=== PATIENT | female | born 1980 | race Caucasian/White ===

== ENCOUNTER 2017-08-06 09:53 | Emergency (ER) | payer BC ==
[2017-08-06] MEDS: Adenosine 6 MG/2 ML SDV ONE ×2 (10:04→10:32)
[2017-08-06] MEDS ORDERED: Adenosine 6 MG/2 ML SDV IVPUSH ONE (10:04)
[2017-08-06] MEDS ORDERED: Sodium Chloride 0.9% 1,000 ML IV ONE (10:16)
--- NOTE | 2017-08-06 10:34 | EDM.PDOC ---
ED HPI GENERAL MEDICAL PROBLEM - General Chief Complaint: Cardiovascular Problem Stated Complaint: AMBULANCE Time Seen by Provider: 08/06/17 12:37 Source of Information: Reports: Patient, EMS - History of Present Illness INITIAL COMMENTS - FREE TEXT/NARRATIVE: HISTORY AND PHYSICAL: History of present illness: [36-year-old female 22 weeks with IUP followed by Dr. melendez, she presents via EMS with SVT alert no shortness of breath no chest pain Lactated Ringer's were running via EMS she received approximately half liter bolus] heart rate remains 200-220, adenosine 6 mg IV provided which converted her to a sinus rhythm rate 80s to 90s. No fever nausea vomiting chills sweats Review of systems: As per history of present illness and below otherwise all systems reviewed and negative. Past medical history: As per history of present illness and as reviewed below otherwise noncontributory. Surgical history: As per history of present illness and as reviewed below otherwise noncontributory. Social history: No reported history of drug or alcohol abuse. Family history: As per history of present illness and as reviewed below otherwise noncontributory. Physical exam: HEENT: Atraumatic, normocephalic, pupils reactive, negative for conjunctival pallor or scleral icterus, mucous membranes moist, throat clear, neck supple, nontender, trachea midline. Lungs: Clear to auscultation, breath sounds equal bilaterally, chest nontender. Heart: S1S2, regular, negative for clicks, rubs, or JVD. Abdomen: Soft, nondistended, nontender. Negative for masses or hepatosplenomegaly. Negative for costovertebral tenderness. Pelvis: Stable nontender. Genitourinary: Deferred. Rectal: Deferred. Extremities: Atraumatic, negative for cords or calf pain. Neurovascular unremarkable. Neuro: Awake, alert, oriented. Cranial nerves II through XII unremarkable. Cerebellum unremarkable. Motor and sensory unremarkable throughout. Exam nonfocal. Diagnostics: []Lab as below EKG heart tones Therapeutics: [Normal saline 1 L bolus Lactated Ringer's half liter bolused provided via EMS Adenosine 6 mg IV In consult [facility] clinic Dr. Baca no further recommendation she did have matted TSH and follow which is normal she would like to patients seen in the clinic a [place] next week and they'll consider cardiology referral with Dr. Mcneal Patient is watched in the ER for extended. She is eating lunch is been up and out of bed walking around and is compressed completely asymptomatic ] Impression: []SVT converted to normal sinus rhythm rate in the 80s to 90s Asymptomatic at current normal sinus rhythm rate 80s to 90s heart tones 140s line 22 weeks with IUP followed by Dr. melendez Definitive disposition and diagnosis as appropriate pending reevaluation and review of above. - Related Data Allergies Allergy/AdvReac Type Severity Reaction Status Date / Time No Known Allergies Allergy Verified 08/06/17 10:10 Home Meds: Home Meds Aspirin 81 mg PO ONETIME 08/06/17 [History] Past Medical History - Past Health History Medical/Surgical History: Denies Medical/Surgical History Social & Family History - Family History Family Medical History: Noncontributory - Tobacco Use Smoking Status *Q: Never Smoker - Recreational Drug Use Recreational Drug Use: No ED ROS GENERAL - Review of Systems Review Of Systems: ROS reveals no pertinent complaints other than HPI. ED EXAM, GENERAL - Physical Exam Exam: See Below Course - Vital Signs Last Recorded V/S: Last Vital Signs Temp 98.0 F 08/06/17 09:55 Pulse 103 H 08/06/17 10:46 Resp 18 08/06/17 10:46 BP 111/71 08/06/17 10:46 Pulse Ox 100 08/06/17 10:46 - Orders/Labs/Meds Orders: Active Orders 24 hr Category Date Time Status EKG Documentation Completion [RC] STAT Care 08/06/17 10:17 Active EKG Documentation Completion [RC] STAT Care 08/06/17 10:17 Active Heart Tones [RC] ASDIRECTED Care 08/06/17 10:16 Active Labs: Laboratory Tests 08/06/17 08/06/17 08/06/17 Range/Units 10:03 10:03 10:03 WBC 7.87 (4.0-11.0) K/uL RBC 4.45 (4.30-5.90) M/uL Hgb 14.1 (12.0-16.0) g/dL Hct 41.0 (36.0-46.0) % MCV 92.1 (80.0-98.0) fL MCH 31.7 (27.0-32.0) pg MCHC 34.4 (31.0-37.0) g/dL RDW Std Deviation 44.0 (28.0-62.0) fl RDW Coeff of Clau 13 (11.0-15.0) % Plt Count 206 (150-400) K/uL MPV 10.70 (7.40-12.00) fL Neut % (Auto) 74.1 (48.0-80.0) % Lymph % (Auto) 20.5 (16.0-40.0) % Wake % (Auto) 5.2 (0.0-15.0) % Eos % (Auto) 0.1 (0.0-7.0) % Baso % (Auto) 0.1 (0.0-1.5) % Neut # (Auto) 5.8 H (1.4-5.7) K/uL Lymph # (Auto) 1.6 (0.6-2.4) K/uL Wake # (Auto) 0.4 (0.0-0.8) K/uL Eos # (Auto) 0.0 (0.0-0.7) K/uL Baso # (Auto) 0.0 (0.0-0.1) K/uL Nucleated RBC % 0.0 /100WBC Nucleated RBCs # 0 K/uL Sodium 136 (136-146) mmol/L Potassium 3.8 (3.5-5.1) mmol/L Chloride 104 (98-110) mmol/L Carbon Dioxide 19 L (21-31) mmol/L BUN 10 (6.0-23.0) mg/dL Creatinine 0.6 (0.6-1.5) mg/dL Est Cr Clr Drug Dosing 121.35 mL/min Estimated GFR (MDRD) > 60.0 ml/min Glucose 109 (60-110) mg/dL Calcium 9.4 (8.8-10.8) mg/dL Total Bilirubin 1.6 H (0.1-1.5) mg/dL AST 26 (5-40) IU/L ALT 16 (8-54) IU/L Alkaline Phosphatase 84 (40-150) Creatine Kinase 33 (9-236) IU/L CK-MB (CK-2) 0.6 (0-6.6) ng/ml Troponin I < 0.10 (0.0-0.29) NG/ML Total Protein 7.6 (6.0-8.0) g/dL Albumin 3.9 (3.5-5.0) g/dL Globulin 3.7 H (2.0-3.5) g/dL Albumin/Globulin Ratio 1.1 L (1.3-2.8) TSH 3rd Generation 2.57 (0.47-5.0) uIU/mL Urine Color Urine Appearance Urine pH (5.0-8.0) Ur Specific [place] (1.001-1.035) Urine Protein (NEGATIVE) mg/dL Urine Glucose (UA) (NEGATIVE) mg/dL Urine Ketones (NEGATIVE) mg/dL Urine Occult Blood (NEGATIVE) Urine Nitrite (NEGATIVE) Urine Bilirubin (NEGATIVE) Urine Urobilinogen (<2.0) EU/dL Ur Leukocyte Esterase (NEGATIVE) Urine RBC (0-2/HPF) Urine WBC (0-5/HPF) Ur Epithelial Cells (NONE-FEW) Urine Bacteria (NEGATIVE) 08/06/17 Range/Units 11:50 WBC (4.0-11.0) K/uL RBC (4.30-5.90) M/uL Hgb (12.0-16.0) g/dL Hct (36.0-46.0) % MCV (80.0-98.0) fL MCH (27.0-32.0) pg MCHC (31.0-37.0) g/dL RDW Std Deviation (28.0-62.0) fl RDW Coeff of Clau (11.0-15.0) % Plt Count (150-400) K/uL MPV (7.40-12.00) fL Neut % (Auto) (48.0-80.0) % Lymph % (Auto) (16.0-40.0) % Wake % (Auto) (0.0-15.0) % Eos % (Auto) (0.0-7.0) % Baso % (Auto) (0.0-1.5) % Neut # (Auto) (1.4-5.7) K/uL Lymph # (Auto) (0.6-2.4) K/uL Wake # (Auto) (0.0-0.8) K/uL Eos # (Auto) (0.0-0.7) K/uL Baso # (Auto) (0.0-0.1) K/uL Nucleated RBC % /100WBC Nucleated RBCs # K/uL Sodium (136-146) mmol/L Potassium (3.5-5.1) mmol/L Chloride (98-110) mmol/L Carbon Dioxide (21-31) mmol/L BUN (6.0-23.0) mg/dL Creatinine (0.6-1.5) mg/dL Est Cr Clr Drug Dosing mL/min Estimated GFR (MDRD) ml/min Glucose (60-110) mg/dL Calcium (8.8-10.8) mg/dL Total Bilirubin (0.1-1.5) mg/dL AST (5-40) IU/L ALT (8-54) IU/L Alkaline Phosphatase (40-150) Creatine Kinase (9-236) IU/L CK-MB (CK-2) (0-6.6) ng/ml Troponin I (0.0-0.29) NG/ML Total Protein (6.0-8.0) g/dL Albumin (3.5-5.0) g/dL Globulin (2.0-3.5) g/dL Albumin/Globulin Ratio (1.3-2.8) TSH 3rd Generation (0.47-5.0) uIU/mL Urine Color YELLOW Urine Appearance CLEAR Urine pH 6.5 (5.0-8.0) Ur Specific [place] 1.010 (1.001-1.035) Urine Protein NEGATIVE (NEGATIVE) mg/dL Urine Glucose (UA) NEGATIVE (NEGATIVE) mg/dL Urine Ketones 40 H (NEGATIVE) mg/dL Urine Occult Blood NEGATIVE (NEGATIVE) Urine Nitrite NEGATIVE (NEGATIVE) Urine Bilirubin NEGATIVE (NEGATIVE) Urine Urobilinogen 0.2 (<2.0) EU/dL Ur Leukocyte Esterase NEGATIVE (NEGATIVE) Urine RBC NONE SEEN (0-2/HPF) Urine WBC 1-2 (0-5/HPF) Ur Epithelial Cells RARE (NONE-FEW) Urine Bacteria FEW (NEGATIVE) Meds: Medications Discontinued Medications Generic Name Dose Route Start Last Admin Trade Name Freq PRN Reason Stop Dose Admin Adenosine Confirm 08/06/17 09:57 08/06/17 10:32 Adenocard Administered 08/06/17 09:58 Not Given Dose 6 mg .ROUTE .STK-MED ONE Adenosine 6 mg 08/06/17 10:04 08/06/17 10:04 Adenocard IVPUSH 08/06/17 10:05 6 mg NOW ONE Administration Sodium Chloride 1,000 mls @ 999 mls/hr 08/06/17 10:16 08/06/17 10:03 Normal Saline IV 08/06/17 11:16 999 mls/hr STAT ONE Administration Departure - Departure Time of Disposition: 12:39 Disposition: Home, Self-Care 01 Condition: Good Clinical Impression: SVT (supraventricular tachycardia) Referrals: PCP,None [Primary Care Provider] - Forms: ED Department Discharge Additional Instructions: Follow-up with [facility] early next week Your OB doctor may consider cardiology consult and they will arrange this next week Return if symptoms persist or worsen or new concerning symptoms develop [facility] [address] [place] [id number] The following information is given to patients seen in the emergency department who are being discharged to home. This information is to outline your options for follow-up care. We provide all patients seen in our emergency department with a follow-up referral. The need for follow-up, as well as the timing and circumstances, are variable depending upon the specifics of your emergency department visit. If you don't have a primary care physician on staff, we will provide you with a referral. We always advise you to contact your personal physician following an emergency department visit to inform them of the circumstance of the visit and for follow-up with them and/or the need for any referrals to a consulting specialist. The emergency department will also refer you to a specialist when appropriate. This referral assures that you have the opportunity for follow-up care with a specialist. All of these measure are taken in an effort to provide you with optimal care, which includes your follow-up. Under all circumstances we always encourage you to contact your private physician who remains a resource for coordinating your care. When calling for follow-up care, please make the office aware that this follow-up is from your recent emergency room visit. If for any reason you are refused follow-up, please contact the [facility] emergency department at and asked to speak to the emergency department charge nurse. - My Orders Last 24 Hours: My Active Orders 08/06/17 10:16 Heart Tones [RC] ASDIRECTED 08/06/17 10:17 EKG Documentation Completion [RC] STAT EKG Documentation Completion [RC] STAT - Assessment/Plan Last 24 Hours: My Active Orders 08/06/17 10:16 Heart Tones [RC] ASDIRECTED 08/06/17 10:17 EKG Documentation Completion [RC] STAT EKG Documentation Completion [RC] STAT
[2017-08-06 10:35] LABS: CHLORIDE,CL 104 mmol/L (98-110); SODIUM,NA 136 mmol/L (136-146)
== END 2017-08-06 13:36 | disposition home or self-care (01) ==
LOC: MW.ED 09:53
DX: O99.412 Diseases of the circulatory system complicating pregnancy, second trimester (principal); I47.1 Supraventricular tachycardia; Z3A.22 22 weeks gestation of pregnancy
CPT/HCPCS: 36415; 80053; 81001; 82550; 82553; 84443; 84484; 85025; 93005; 96361; 96374; 99285; J0153; J7040

== ENCOUNTER 2017-11-28 09:45 | Inpatient (IN) | payer BC ==
[2017-11-28] MEDS ORDERED: Terbutaline 1 MG/ML SDV SUBCUT PRN (10:14)
[2017-11-28] MEDS ORDERED: Oxytocin/0.9 % Sodium Chloride 30 UNIT/500 ML BAG IV SCH ×2 (10:15→10:30)
[2017-11-28] MEDS ORDERED: Lidocaine 1% 50 ML MDV INJECT PRN (10:18)
[2017-11-28] MEDS ORDERED: Butorphanol 1 MG/ML SDV IVPUSH PRN (10:18)
[2017-11-28] MEDS ORDERED: Methylergonovine 0.2 MG/1 ML Amp IM PRN (10:18)
[2017-11-28] MEDS ORDERED: Nalbuphine 10 MG/1 ML Vial IVPUSH PRN (10:18)
[2017-11-28] MEDS ORDERED: Misoprostol 200 MCG Tab PO PRN (10:18)
[2017-11-28] MEDS ORDERED: Carboprost Tromethamine 250 MCG/1 ML Amp IM PRN (10:18)
[2017-11-28] MEDS ORDERED: Sodium Chloride 0.9% 2.5 ML Syringe FLUSH PRN (10:18)
[2017-11-28] MEDS ORDERED: Water For Irrigation,Sterile 1,000 ML Container IRR PRN (10:18)
[2017-11-28] MEDS ORDERED: Tranexamic Acid 1,000 MG in Sodium Chloride 0.9% 100 ML IV PRN ×2 (10:18→15:10)
[2017-11-28] MEDS ORDERED: Sodium Chloride 0.9% 10 ML Syringe FLUSH PRN (10:18)
[2017-11-28] MEDS: Lactated Ringers 1,000 ML IV SCH ×2 (11:03→13:01)
--- NOTE | 2017-11-28 12:35 | PCM.PREANE ---
Preanesthetic Assessment - Anesthesia/Transfusion/Family Hx Anesthesia History: Prior Anesthesia Without Reaction Transfusion History: No Prior Transfusion(s) - Review of Systems General: No Symptoms Pulmonary: No Symptoms Cardiovascular: No Symptoms Gastrointestinal: No Symptoms Neurological: No Symptoms Other: Reports: None - Physical Assessment Height: 5 ft 6 in Weight: 77.564 kg ASA Class: 2 Mental Status: Alert & Oriented x3 Airway Class: Mallampati = 2 Dentition: Reports: Normal Dentition Thyro-Mental Finger Breadths: 3 Mouth Opening Finger Breadths: 3 ROM/Head Extension: Full Lungs: Clear to Auscultation, Normal Respiratory Effort Cardiovascular: Regular Rate, Regular Rhythm - Lab Values: Laboratory Last Values WBC 9.79 K/uL (4.0-11.0) 11/28/17 10:40 RBC 3.74 M/uL (4.30-5.90) L 11/28/17 10:40 Hgb 11.7 g/dL (12.0-16.0) L 11/28/17 10:40 Hct 34.0 % (36.0-46.0) L 11/28/17 10:40 MCV 90.9 fL (80.0-98.0) 11/28/17 10:40 MCH 31.3 pg (27.0-32.0) 11/28/17 10:40 MCHC 34.4 g/dL (31.0-37.0) 11/28/17 10:40 RDW Std Deviation 43.8 fl (28.0-62.0) 11/28/17 10:40 RDW Coeff of Clau 13 % (11.0-15.0) 11/28/17 10:40 Plt Count 198 K/uL (150-400) 11/28/17 10:40 MPV 10.10 fL (7.40-12.00) 11/28/17 10:40 Nucleated RBC % 0.0 /100WBC 11/28/17 10:40 Nucleated RBCs # 0 K/uL 11/28/17 10:40 Blood Type O POSITIVE 11/28/17 10:40 Antibody Screen NEGATIVE 11/28/17 10:40 - Allergies Allergies/Adverse Reactions: Allergies Allergy/AdvReac Type Severity Reaction Status Date / Time No Known Allergies Allergy Verified 08/06/17 10:10 - Acknowledgements Anesthesia Type Planned: Epidural Pt an Appropriate Candidate for the Planned Anesthesia: Yes Alternatives and Risks of Anesthesia Discussed w Pt/Guardian: Yes Pt/Guardian Understands and Agrees with Anesthesia Plan: Yes PreAnesthesia Questionnaire - Past Health History Medical/Surgical History: Denies Medical/Surgical History HEENT History: Reports: None Cardiovascular History: Reports: Other (See Below) Other Cardiovascular History: Some episodes of tachycardia 4x a year (SVT). Last episode , has responded to adenosine in the past 6mg Respiratory History: Reports: None Gastrointestinal History: Reports: GERD Genitourinary History: Reports: None ASSOCIATE MANAGER History: Reports: : 2 Para: 1 LMP (Approximate): Musculoskeletal History: Reports: None Neurological History: Reports: None Psychiatric History: Reports: None Endocrine/Metabolic History: Reports: None Hematologic History: Reports: None Immunologic History: Reports: None Oncologic (Cancer) History: Reports: None Dermatologic History: Reports: None - Infectious Disease History Infectious Disease History: Reports: None - Past Surgical History Head Surgeries/Procedures: Reports: None Female Surgical History: Reports: None - SUBSTANCE USE Smoking Status *Q: Never Smoker Second Hand Smoke Exposure: No Recreational Drug Use History: No - HOME MEDS Home Medications: Home Meds Aspirin 81 mg PO ONETIME 08/06/17 [History] - CURRENT (IN HOUSE) MEDS Current Meds: Current Medications Butorphanol Tartrate (Stadol) 1 mg IVPUSH Q1H PRN PRN Reason: Pain Carboprost Tromethamine (Hemabate Ds) 250 mcg IM ASDIRECTED PRN PRN Reason: Post Hemorrhage Oxytocin/Sodium Chloride (Oxytocin 30 Unit/500 Ml-Ns) 30 unit in 500 mls @ 2 mls/hr IV TITRATE NANCY; Protocol Last Titration: 11/28/17 12:09 Dose: 6 munits/min, 6 mls/hr Lactated Ringer's (Ringers, Lactated) 1,000 mls @ 150 mls/hr IV ASDIRECTED NANCY Last Admin: 11/28/17 11:03 Dose: 150 mls/hr Oxytocin/Sodium Chloride (Oxytocin 30 Unit/500 Ml-Ns) 30 unit in 500 mls @ 500 mls/hr IV TITRATE NANCY Tranexamic Acid 1,000 mg/ (Sodium Chloride) 110 mls @ 660 mls/hr IV ONETIME PRN PRN Reason: Bleeding Lidocaine HCl (Xylocaine 1%) 50 ml INJECT .ONCE PRN PRN Reason: Laceration repair Methylergonovine Maleate (Methergine) 0.2 mg IM ASDIRECTED PRN PRN Reason: Post Hemorrhage Misoprostol (Cytotec) 200 mcg PO .ONCE PRN PRN Reason: Post Hemorrhage Nalbuphine HCl (Nubain) 10 mg IVPUSH Q1H PRN PRN Reason: Pain (severe 7-10) Sodium Chloride (Saline Flush) 10 ml FLUSH ASDIRECTED PRN PRN Reason: Keep Vein Open Sodium Chloride (Saline Flush) 2.5 ml FLUSH ASDIRECTED PRN PRN Reason: Keep Vein Open Sterile Water (Sterile Water For Irrigation) 1,000 ml IRR ASDIRECTED PRN PRN Reason: delivery Terbutaline Sulfate (Brethine) 0.25 mg SUBCUT ASDIRECTED PRN PRN Reason: Tacysystole
[2017-11-28] MEDS ORDERED: Bisacodyl 10 MG Supp RECTAL PRN (15:10)
[2017-11-28] MEDS ORDERED: Ibuprofen 400 MG Tab PO PRN (15:10)
[2017-11-28] MEDS ORDERED: Methylergonovine 0.2 MG Tab PO PRN (15:10)
[2017-11-28] MEDS ORDERED: Lanolin 100% Cream 7 GM Tube TOP PRN (15:10)
[2017-11-28] MEDS ORDERED: oxyCODONE 5 MG Tab PO PRN (15:10)
[2017-11-28] MEDS ORDERED: Docusate Sodium 100 MG Cap PO PRN (15:10)
[2017-11-28] MEDS ORDERED: Acetaminophen 500 MG Tab PO PRN ×2 (15:10)
[2017-11-28] MEDS ORDERED: Benzocaine/Menthol 20%-0.5% Spray 78 GM Cannister TOP PRN (15:10)
[2017-11-28] MEDS ORDERED: Witch Hazel Medicated Pads 40/Jar TOP PRN (15:10)
--- NOTE | 2017-11-28 15:18 | PCM.DEL ---
L & D Note - General Info Date of Service: 11/28/17 Mother's Due Date: 12/03/17 - Delivery Note Labor: Induced by Oxytocin Delivery Outcome: Livebirth Infant Delivery Mode: Spontaneous Presentation: Left Occiput Anterior (JAVIER) Nuchal Cord: None Prep: Other Anesthesia Type: None, Epidural Episiotomy Type: None Laceration: 2nd Degree, Periurethral Suture type: Vicryl Suture size: 3-0 Placenta: Intact, Spontaneous Cord: 2 Vessels Resuscitation Needed: No [place]: Stimulated - Patient Data Weight - Most Recent: 77.564 kg Lab Results Last 24 Hours: Laboratory Results - last 24 hr 11/28/17 11/28/17 Range/Units 10:40 10:40 WBC 9.79 (4.0-11.0) K/uL RBC 3.74 L (4.30-5.90) M/uL Hgb 11.7 L (12.0-16.0) g/dL Hct 34.0 L (36.0-46.0) % MCV 90.9 (80.0-98.0) fL MCH 31.3 (27.0-32.0) pg MCHC 34.4 (31.0-37.0) g/dL RDW Std Deviation 43.8 (28.0-62.0) fl RDW Coeff of Clau 13 (11.0-15.0) % Plt Count 198 (150-400) K/uL MPV 10.10 (7.40-12.00) fL Nucleated RBC % 0.0 /100WBC Nucleated RBCs # 0 K/uL Blood Type O POSITIVE Antibody Screen NEGATIVE Med Orders - Current: Current Medications Acetaminophen (Tylenol Extra Strength) 500 mg PO Q4H PRN PRN Reason: Pain Acetaminophen (Tylenol Extra Strength) 1,000 mg PO Q4H PRN PRN Reason: Pain Benzocaine/Menthol (Dermoplast Pain Relief 20%-0.5% [place]) 78 gm TOP ASDIRECTED PRN PRN Reason: Perineal Comfort Measure Bisacodyl (Dulcolax) 10 mg RECTAL .ONCE PRN PRN Reason: Constipation Docusate Sodium (Colace) 100 mg PO BID PRN PRN Reason: Constipation Emollient Ointment (Lansinoh Hpa) 0 gm TOP ASDIRECTED PRN PRN Reason: Sore Nipples Tranexamic Acid 1,000 mg/ (Sodium Chloride) 110 mls @ 660 mls/hr IV ONETIME PRN PRN Reason: Bleeding Ibuprofen (Motrin) 400 mg PO Q4H PRN PRN Reason: Pain Ibuprofen (Motrin) 800 mg PO Q6H PRN PRN Reason: Pain Methylergonovine Maleate (Methergine) 0.2 mg PO ASDIRECTED PRN PRN Reason: excessive vaginal bleeding Oxycodone HCl (Oxycodone) 5 mg PO Q2H PRN PRN Reason: Pain Witch Tosin (Tucks) 1 pad TOP ASDIRECTED PRN PRN Reason: comfort care Discontinued Medications Butorphanol Tartrate (Stadol) 1 mg IVPUSH Q1H PRN PRN Reason: Pain Carboprost Tromethamine (Hemabate Ds) 250 mcg IM ASDIRECTED PRN PRN Reason: Post Hemorrhage Oxytocin/Sodium Chloride (Oxytocin 30 Unit/500 Ml-Ns) 30 unit in 500 mls @ 2 mls/hr IV TITRATE NANCY; Protocol Last Titration: 11/28/17 13:29 Dose: 2 munits/min, 2 mls/hr Lactated Ringer's (Ringers, Lactated) 1,000 mls @ 150 mls/hr IV ASDIRECTED NANCY Last Admin: 11/28/17 13:01 Dose: 150 mls/hr Oxytocin/Sodium Chloride (Oxytocin 30 Unit/500 Ml-Ns) 30 unit in 500 mls @ 500 mls/hr IV TITRATE NANCY Tranexamic Acid 1,000 mg/ (Sodium Chloride) 110 mls @ 660 mls/hr IV ONETIME PRN PRN Reason: Bleeding Fentanyl/Bupivacaine HCl (Ugtydfal-Goead-Km 2 Mcg/Ml-0.125%) Confirm Administered Dose 100 mls @ as directed EP .[facility] Stop: 11/28/17 12:38 Lidocaine HCl (Xylocaine 1%) 50 ml INJECT .ONCE PRN PRN Reason: Laceration repair Methylergonovine Maleate (Methergine) 0.2 mg IM ASDIRECTED PRN PRN Reason: Post Hemorrhage Misoprostol (Cytotec) 200 mcg PO .ONCE PRN PRN Reason: Post Hemorrhage Nalbuphine HCl (Nubain) 10 mg IVPUSH Q1H PRN PRN Reason: Pain (severe 7-10) Sodium Chloride (Saline Flush) 10 ml FLUSH ASDIRECTED PRN PRN Reason: Keep Vein Open Sodium Chloride (Saline Flush) 2.5 ml FLUSH ASDIRECTED PRN PRN Reason: Keep Vein Open Sterile Water (Sterile Water For Irrigation) 1,000 ml IRR ASDIRECTED PRN PRN Reason: delivery Terbutaline Sulfate (Brethine) 0.25 mg SUBCUT ASDIRECTED PRN PRN Reason: Tacysystole - Problem List & Annotations (1) Vaginal delivery SNOMED Code(s): 887487964 Code(s): O80 - ENCOUNTER FOR FULL-TERM UNCOMPLICATED DELIVERY Status: Acute Current Visit: Yes - Problem List Review Problem List Initiated/Reviewed/Updated: Yes - My Orders Last 24 Hours: My Active Orders 11/28/17 10:14 Bedrest Bathroom Privileges [RC] ASDIRECTED Communication Order [RC] ASDIRECTED Communication Order [RC] ASDIRECTED Notify Provider [RC] PRN Oxygen Therapy [RC] ASDIRECTED Vaginal Exam [RC] PRN Vital Signs [RC] PER UNIT ROUTINE 11/28/17 10:18 Heart Tones [RC] CONTINUOUS Non Stress Test [RC] PER UNIT ROUTINE May Shower [RC] ASDIRECTED Notify Provider [RC] PRN Up ad Faiza [RC] ASDIRECTED Vaginal Exam [RC] PRN Vital Signs [RC] PER UNIT ROUTINE 11/28/17 15:10 Patient Status [ADT] Routine May Shower [RC] ASDIRECTED Up ad Faiza [RC] ASDIRECTED Vital Signs [RC] PER UNIT ROUTINE Acetaminophen [Tylenol Extra Strength] 1,000 mg PO Q4H PRN Acetaminophen [Tylenol Extra Strength] 500 mg PO Q4H PRN Benzocaine/Menthol [Dermoplast Pain Relief 20%-0.5% [place]] 78 gm TOP ASDIRECTED PRN Bisacodyl [Dulcolax] 10 mg RECTAL .ONCE PRN Docusate Sodium [Colace] 100 mg PO BID PRN Ibuprofen [Motrin] 400 mg PO Q4H PRN Ibuprofen [Motrin] 800 mg PO Q6H PRN Lanolin [Lansinoh HPA] See Dose Instructions TOP ASDIRECTED PRN Methylergonovine [Methergine] 0.2 mg PO ASDIRECTED PRN Tranexamic Acid [Cyklokapron] 1,000 mg Sodium Chloride 0.9% [Normal Saline] 100 ml IV ONETIME Witch Tosin [Tucks] 1 pad TOP ASDIRECTED PRN oxyCODONE 5 mg PO Q2H PRN Assess Lochia [WOMSER] Per Unit Routine Assess Uterine Involution [WOMSER] Per Unit Routine Perineal Care [OM.PC] Per Unit Routine Peripheral IV Discontinue [OM.PC] Routine Resuscitation Status Routine 11/28/17 Dinner Regular Diet [DIET] 11/29/17 05:11 HEMOGLOBIN/HEMATOCRIT,HH [HEME] Timed
[2017-11-28] MEDS: Ibuprofen 800 MG Tab PO PRN (17:39)
--- NOTE | 2017-11-28 22:53 | OR ---
SURGEON: Rita Adrian M.D. DATE OF PROCEDURE: 11/28/2017 PREOPERATIVE DIAGNOSES: 1. A 39 and 2/7 week intrauterine . 2. Single umbilical artery. 3. Advanced maternal age. POSTOPERATIVE DIAGNOSES: 1. A 39 and 2/7 week intrauterine . 2. Single umbilical artery. 3. Advanced maternal age. PROCEDURE: Pitocin induction of labor, term spontaneous vaginal delivery with repair of second-degree laceration. POST ANESTHESIA NURSE: Bianca Leblanc MS4. ANESTHESIA: Epidural. ESTIMATED BLOOD LOSS: 400 mL. FINDINGS: Liveborn female, scores of 8 and 9, weighing 3090 g. Placenta spontaneous, Schultze intact with two-vessel cord. Upon inspection the pelvis and perineum, there was a periurethral laceration which was repaired due to bleeding, and a second-degree perineal laceration that was also repaired. COMPLICATIONS: None known. DISPOSITION: Mother and baby are in LDRP in good condition. BRIEF INDICATION: This is a 37-year-old female, G2, P1, who presents at 39 and 2/7th weeks' gestation, 2 to 3 cm dilatation for induction of labor due to advanced maternal age and a single umbilical artery. She was started on Pitocin. She had spontaneous rupture of membranes approximately 3 hours later. Overall, category 1 heart tones throughout labor. She received an epidural for pain control after membranes had ruptured and she progressed rapidly thereafter to complete. DESCRIPTION OF PROCEDURE: With the patient in dorsal lithotomy position, under adequate epidural analgesia, the patient pushed over 3 contractions to a 5+ station, at which time the head was delivered spontaneously and atraumatically over the perineum with support with subsequent delivery of the 's shoulders and body without any difficulty. The was cleaned and handed to the mother in the presence of the nurse attending delivery. The infant was a liveborn female, scores of 8 and 9, weighing 3090 g. Cord blood was collected for cord ABGs as well as routine cord blood sampling. The Pitocin was initiated after delivery of the to assist with delivery of the placenta which was delivered spontaneously, Schultze intact with 3 vessels. Upon inspection of the pelvis and perineum, there were no vaginal sidewall, cervical, or rectal lacerations. There was a periurethral laceration extending upward toward the clitoris which was bleeding copiously and a second-degree perineal laceration. The arterial bleeder near the clitoris was isolated and grasped with the hemostats and ligated using 2 [id number] sutures of 3-0 Caprosyn. With this being completed, there was complete hemostasis anteriorly, therefore, 2 figure-of- eight sutures were placed in the deep perineal tissue and then a running lock suture of 3-0 Polysorb was utilized to reapproximate the vaginal mucosa. A deep running suture of the same for the perineum and a subcuticular suture of the same for the skin. Final sponge, needle, and instrument count were correct. There were no known complications. Mother and baby remained in LDRP in good condition. HIREN / JUAN /[id number]
[2017-11-29] MEDS: Ibuprofen 800 MG Tab PO PRN ×3 (00:01→13:58)
--- NOTE | 2017-11-29 06:52 | PCM48HPAN ---
Post Anesthesia Note - EVALUATION WITHIN 48HRS OF ANESTHETIC Vital Signs in Normal Range: Yes Patient Participated in Evaluation: Yes Respiratory Function Stable: Yes Airway Patent: Yes Cardiovascular Function Stable: Yes Hydration Status Stable: Yes Pain Control Satisfactory: Yes Nausea and Vomiting Control Satisfactory: Yes Mental Status Recovered: Yes Resp Rate: 15
--- NOTE | 2017-11-29 08:00 | PCM.PNPP ---
<Maliha Eastman - Last Filed: 11/29/17 07:57> - General Info Date of Service: 11/29/17 Functional Status: Reports: Pain Controlled, Tolerating Diet, Ambulating, Urinating - Review of Systems General: Denies: Fever, Weakness Pulmonary: Denies: Shortness of Breath, Pleuritic Chest Pain, Cough Cardiovascular: Denies: Chest Pain, Palpitations, Dyspnea on Exertion Gastrointestinal: Denies: Abdominal Pain Genitourinary: Denies: Dysuria Psychiatric: Reports: No Symptoms - General Info Date of Service: 11/29/17 - Patient Data Vital Signs - Most Recent: Last Vital Signs Temp 36.2 C 11/29/17 04:00 Pulse 75 11/29/17 04:00 Resp 15 11/29/17 06:52 BP 103/55 L 11/29/17 04:00 Pulse Ox 95 11/29/17 04:00 Weight - Most Recent: 77.564 kg Lab Results - Last 24 Hours: Laboratory Results - last 24 hr 11/28/17 11/28/17 11/29/17 Range/Units 10:40 10:40 05:57 WBC 9.79 (4.0-11.0) K/uL RBC 3.74 L (4.30-5.90) M/uL Hgb 11.7 L 10.1 L (12.0-16.0) g/dL Hct 34.0 L 29.1 L (36.0-46.0) % MCV 90.9 (80.0-98.0) fL MCH 31.3 (27.0-32.0) pg MCHC 34.4 (31.0-37.0) g/dL RDW Std Deviation 43.8 (28.0-62.0) fl RDW Coeff of Clau 13 (11.0-15.0) % Plt Count 198 (150-400) K/uL MPV 10.10 (7.40-12.00) fL Nucleated RBC % 0.0 /100WBC Nucleated RBCs # 0 K/uL Blood Type O POSITIVE Antibody Screen NEGATIVE Med Orders - Current: Current Medications Acetaminophen (Tylenol Extra Strength) 500 mg PO Q4H PRN PRN Reason: Pain Acetaminophen (Tylenol Extra Strength) 1,000 mg PO Q4H PRN PRN Reason: Pain Benzocaine/Menthol (Dermoplast Pain Relief 20%-0.5% [place]) 78 gm TOP ASDIRECTED PRN PRN Reason: Perineal Comfort Measure Last Admin: 11/28/17 17:40 Dose: 1 spray Bisacodyl (Dulcolax) 10 mg RECTAL .ONCE PRN PRN Reason: Constipation Docusate Sodium (Colace) 100 mg PO BID PRN PRN Reason: Constipation Last Admin: 11/29/17 07:40 Dose: 100 mg Emollient Ointment (Lansinoh Hpa) 0 gm TOP ASDIRECTED PRN PRN Reason: Sore Nipples Tranexamic Acid 1,000 mg/ (Sodium Chloride) 110 mls @ 660 mls/hr IV ONETIME PRN PRN Reason: Bleeding Ibuprofen (Motrin) 400 mg PO Q4H PRN PRN Reason: Pain Ibuprofen (Motrin) 800 mg PO Q6H PRN PRN Reason: Pain Last Admin: 11/29/17 07:40 Dose: 800 mg Methylergonovine Maleate (Methergine) 0.2 mg PO ASDIRECTED PRN PRN Reason: excessive vaginal bleeding Oxycodone HCl (Oxycodone) 5 mg PO Q2H PRN PRN Reason: Pain Witch Tosin (Tucks) 1 pad TOP ASDIRECTED PRN PRN Reason: comfort care Last Admin: 11/28/17 17:40 Dose: 1 applic Discontinued Medications Butorphanol Tartrate (Stadol) 1 mg IVPUSH Q1H PRN PRN Reason: Pain Carboprost Tromethamine (Hemabate Ds) 250 mcg IM ASDIRECTED PRN PRN Reason: Post Hemorrhage Oxytocin/Sodium Chloride (Oxytocin 30 Unit/500 Ml-Ns) 30 unit in 500 mls @ 2 mls/hr IV TITRATE NANCY; Protocol Last Titration: 11/28/17 14:45 Dose: 500 munits/min, 500 mls/hr Lactated Ringer's (Ringers, Lactated) 1,000 mls @ 150 mls/hr IV ASDIRECTED NANCY Last Admin: 11/28/17 13:01 Dose: 150 mls/hr Oxytocin/Sodium Chloride (Oxytocin 30 Unit/500 Ml-Ns) 30 unit in 500 mls @ 500 mls/hr IV TITRATE NANCY Tranexamic Acid 1,000 mg/ (Sodium Chloride) 110 mls @ 660 mls/hr IV ONETIME PRN PRN Reason: Bleeding Fentanyl/Bupivacaine HCl (Xoesznht-Uolvs-Tg 2 Mcg/Ml-0.125%) Confirm Administered Dose 100 mls @ as directed MECCA ArredondoSTK-MED ONE Stop: 11/28/17 12:38 Last Admin: 11/28/17 21:04 Dose: Not Given Lidocaine HCl (Xylocaine 1%) 50 ml INJECT .ONCE PRN PRN Reason: Laceration repair Methylergonovine Maleate (Methergine) 0.2 mg IM ASDIRECTED PRN PRN Reason: Post Hemorrhage Misoprostol (Cytotec) 200 mcg PO .ONCE PRN PRN Reason: Post Hemorrhage Nalbuphine HCl (Nubain) 10 mg IVPUSH Q1H PRN PRN Reason: Pain (severe 7-10) Sodium Chloride (Saline Flush) 10 ml FLUSH ASDIRECTED PRN PRN Reason: Keep Vein Open Sodium Chloride (Saline Flush) 2.5 ml FLUSH ASDIRECTED PRN PRN Reason: Keep Vein Open Sterile Water (Sterile Water For Irrigation) 1,000 ml IRR ASDIRECTED PRN PRN Reason: delivery Last Admin: 11/28/17 14:40 Dose: 1,000 ml Terbutaline Sulfate (Brethine) 0.25 mg SUBCUT ASDIRECTED PRN PRN Reason: Tacysystole - Infant Interaction Infant Disposition, : [place] in Room with Family Interaction: Holding Infant Feeding: Breastfed ; Nursed Well Support Person: - Recovery Exam Fundal Tone: Firm Fundal Level: 2 Fingerbreadths Below Umbilicus Fundal Placement: Midline Lochia Amount: Scant Lochia Color: Rubra/Red Perineum Description: Intact, Minimal Bruising/Swelling Episiotomy/Laceration: None Bladder Status: Voiding - Exam General: Alert, Oriented Neck: Supple Lungs: Clear to Auscultation, Normal Respiratory Effort Cardiovascular: Regular Rate, Regular Rhythm GI/Abdominal Exam: Normal Bowel Sounds, Soft, No Organomegaly, No Distention Extremities: Normal Inspection, Pedal Edema (trace) Skin: Warm, Dry, Intact Psy/Mental Status: Alert - Problem List & Annotations (1) Vaginal delivery SNOMED Code(s): 432046659 Code(s): O80 - ENCOUNTER FOR FULL-TERM UNCOMPLICATED DELIVERY Status: Acute - Problem List Review Problem List Initiated/Reviewed/Updated: Yes - Assessment Assessment:: PPD#1 from . Minimal pain and lochia. Breast feeding well. Discharge home today. - Plan Plan:: Pelvic rest for 6 weeks. Continue PNV while breast feeding. Can use OTC ibuprofen/tylenol as needed for pain. Instructed patient to call if she develops fever greater than 101 or bleeding through a large pad an hour. F/U with [facility] in 6 weeks <Rita Adrian - Last Filed: 12/01/17 08:18> - Patient Data Vital Signs - Most Recent: Last Vital Signs Temp 36.2 C 11/29/17 04:00 Pulse 90 11/29/17 17:00 Resp 15 11/29/17 17:00 BP 108/59 L 11/29/17 17:00 Pulse Ox 94 L 11/29/17 17:00 Med Orders - Current: Current Medications Discontinued Medications Acetaminophen (Tylenol Extra Strength) 500 mg PO Q4H PRN PRN Reason: Pain Acetaminophen (Tylenol Extra Strength) 1,000 mg PO Q4H PRN PRN Reason: Pain Last Admin: 11/29/17 11:38 Dose: 1,000 mg Benzocaine/Menthol (Dermoplast Pain Relief 20%-0.5% [place]) 78 gm TOP ASDIRECTED PRN PRN Reason: Perineal Comfort Measure Last Admin: 11/28/17 17:40 Dose: 1 spray Bisacodyl (Dulcolax) 10 mg RECTAL .ONCE PRN PRN Reason: Constipation Butorphanol Tartrate (Stadol) 1 mg IVPUSH Q1H PRN PRN Reason: Pain Carboprost Tromethamine (Hemabate Ds) 250 mcg IM ASDIRECTED PRN PRN Reason: Post Hemorrhage Docusate Sodium (Colace) 100 mg PO BID PRN PRN Reason: Constipation Last Admin: 11/29/17 07:40 Dose: 100 mg Emollient Ointment (Lansinoh Hpa) 0 gm TOP ASDIRECTED PRN PRN Reason: Sore Nipples Oxytocin/Sodium Chloride (Oxytocin 30 Unit/500 Ml-Ns) 30 unit in 500 mls @ 2 mls/hr IV TITRATE NANCY; Protocol Last Titration: 11/28/17 14:45 Dose: 500 munits/min, 500 mls/hr Lactated Ringer's (Ringers, Lactated) 1,000 mls @ 150 mls/hr IV ASDIRECTED [facility] Last Admin: 11/28/17 13:01 Dose: 150 mls/hr Oxytocin/Sodium Chloride (Oxytocin 30 Unit/500 Ml-Ns) 30 unit in 500 mls @ 500 mls/hr IV TITRATE NANCY Tranexamic Acid 1,000 mg/ (Sodium Chloride) 110 mls @ 660 mls/hr IV ONETIME PRN PRN Reason: Bleeding Fentanyl/Bupivacaine HCl (Gukejmnz-Bnlip-Ts 2 Mcg/Ml-0.125%) Confirm Administered Dose 100 mls @ as directed EP .K-MED ONE Stop: 11/28/17 12:38 Last Admin: 11/28/17 21:04 Dose: Not Given Tranexamic Acid 1,000 mg/ (Sodium Chloride) 110 mls @ 660 mls/hr IV ONETIME PRN PRN Reason: Bleeding Ibuprofen (Motrin) 400 mg PO Q4H PRN PRN Reason: Pain Ibuprofen (Motrin) 800 mg PO Q6H PRN PRN Reason: Pain Last Admin: 11/29/17 13:58 Dose: 800 mg Lidocaine HCl (Xylocaine 1%) 50 ml INJECT .ONCE PRN PRN Reason: Laceration repair Methylergonovine Maleate (Methergine) 0.2 mg IM ASDIRECTED PRN PRN Reason: Post Hemorrhage Methylergonovine Maleate (Methergine) 0.2 mg PO ASDIRECTED PRN PRN Reason: excessive vaginal bleeding Misoprostol (Cytotec) 200 mcg PO .ONCE PRN PRN Reason: Post Hemorrhage Nalbuphine HCl (Nubain) 10 mg IVPUSH Q1H PRN PRN Reason: Pain (severe 7-10) Oxycodone HCl (Oxycodone) 5 mg PO Q2H PRN PRN Reason: Pain Sodium Chloride (Saline Flush) 10 ml FLUSH ASDIRECTED PRN PRN Reason: Keep Vein Open Sodium Chloride (Saline Flush) 2.5 ml FLUSH ASDIRECTED PRN PRN Reason: Keep Vein Open Sterile Water (Sterile Water For Irrigation) 1,000 ml IRR ASDIRECTED PRN PRN Reason: delivery Last Admin: 11/28/17 14:40 Dose: 1,000 ml Terbutaline Sulfate (Brethine) 0.25 mg SUBCUT ASDIRECTED PRN PRN Reason: Tacysystole Witch Tosin (Tucks) 1 pad TOP ASDIRECTED PRN PRN Reason: comfort care Last Admin: 11/28/17 17:40 Dose: 1 applic - Problem List & Annotations (1) Vaginal delivery SNOMED Code(s): 171566534 Code(s): O80 - ENCOUNTER FOR FULL-TERM UNCOMPLICATED DELIVERY Status: Acute - Problem List Review Problem List Initiated/Reviewed/Updated: Yes - Assessment Assessment:: [email or web address] was seen and examined on day of discharge, and I agree with above.
== END 2017-11-29 17:50 | disposition home or self-care (01) | DRG 560 ==
LOC: MW.OBCHECK 09:45 → MW.OB 09:47 → OBSVTOIN 14:44
PROVIDERS: ADMIT Obstetrics & Gynecology; ATTEND Obstetrics & Gynecology
PROC: 10E0XZZ Delivery of Products of Conception, External Approach (ICD-10-PCS; principal; 2017-11-28)
PROC: 3E033VJ Introduction of Other Hormone into Peripheral Vein, Percutaneous Approach (ICD-10-PCS; 2017-11-28)
DX: O75.89 Other specified complications of labor and delivery (principal); Q27.0 Congenital absence and hypoplasia of umbilical artery; O09.523 Supervision of elderly multigravida, third trimester; Z3A.37 37 weeks gestation of pregnancy; Z37.0 Single live birth
CPT/HCPCS: 36415; 51702; 59025; 59409; 85014; 85018; 85027; 86850; 86900; 86901; A9270-GY; J2590; J7120

== ENCOUNTER 2022-09-23 12:03 | Emergency (ER) | payer BC ==
[2022-09-23] MEDS ORDERED: Sodium Chloride 0.9% 1,000 ML IV ONE (12:26)
[2022-09-23 13:48] LABS: CARBON DIOXIDE,CO2 28.7 mmol/L (21.0-32.0); POTASSIUM,K 3.2 mmol/L (3.5-5.1)
[2022-09-23] MEDS ORDERED: Potassium Chloride 20 MEQ Tab.ER PO ONE (14:01)
== END 2022-09-23 14:28 | disposition home or self-care (01) ==
LOC: MW.ED 12:03
DX: E87.6 Hypokalemia (principal); R00.2 Palpitations; E03.9 Hypothyroidism, unspecified
CPT/HCPCS: 36415; 71045; 80053; 81001; 84443; 85025; 87086; 87088; 87186; 93005; 96360; 99285; A9270; J7030; 99283

== ENCOUNTER 2024-12-04 08:23 | Emergency (ER) | payer BC ==
[2024-12-04] MEDS ORDERED: Sodium Chloride 0.9% 10 ML Syringe FLUSH PRN (08:47)
[2024-12-04] MEDS ORDERED: Sodium Chloride 0.9% 2.5 ML Syringe FLUSH PRN (08:47)
[2024-12-04 09:08] LABS: BASOPHILS ABSOLUTE AUTO 0.02 K/uL (0.00-0.20); BASOPHILS PERCENT AUTO 0.2 % (0.0-1.0); EOSINOPHILS ABSOLUTE AUTO 0.02 K/uL (0.00-0.45); EOSINOPHILS PERCENT AUTO 0.2 % (0.0-6.0); HEMATOCRIT 39.2 % (37.0-47.0); HEMOGLOBIN 13.4 g/dL (12.0-16.0); IMMATURE GRAN ABSOLUTE AUTO 0.04 K/uL (0.00-0.05); IMMATURE GRAN PERCENT AUTO 0.3 % (0.0-0.4); LYMPHOCYTES PERCENT AUTO 8.6 % (24.0-44.0); MEAN CORPUSCULAR HEMOGLOBIN 30.8 pg (28.0-32.0); MEAN CORPUSCULAR HGB CONC 34.2 g/dL (32.0-36.0); MEAN CORPUSCULAR VOLUME 90.1 fL (83.0-99.0); MEAN PLATELET VOLUME 10.2 fL (9.4-12.3); MONOCYTES ABSOLUTE AUTO 0.55 K/uL (0.00-0.80); MONOCYTES PERCENT AUTO 4.7 % (0.0-8.0); NEUTROPHILS ABSOLUTE AUTO 10.04 K/uL (1.80-7.70); PLATELET COUNT,PLT 213 K/uL (150-400); RED BLOOD CELL COUNT 4.35 M/uL (4.10-5.30); WHITE BLOOD CELL COUNT,WBC 11.67 K/uL (3.9-11.3)
[2024-12-04 09:40] LABS: A/G RATIO 0.9 (0.9-1.6); ALBUMIN 3.6 g/dL (3.4-5.0); BILIRUBIN TOTAL 0.9 mg/dL (0.2-1.0); CALCIUM 8.9 mg/dL (8.5-10.1); CARBON DIOXIDE,CO2 25.9 mmol/L (21.0-32.0); CREATININE 0.8 mg/dL (0.6-1.0); EST CRCL DRUG DOSING (CG) 84.01 mL/min; POTASSIUM,K 3.5 mmol/L (3.5-5.1); PROTEIN TOTAL,TP 7.4 g/dL (6.4-8.2)
[2024-12-04] MEDS: Meclizine 25 MG Tab PO ONE (10:01)
[2024-12-04] MEDS: LORazepam 2 MG/ML SDV IVPUSH ONE (12:06)
[2024-12-04] MEDS: Ondansetron 4 MG/2 ML SDV IVPUSH ONE (12:07)
== END 2024-12-04 14:15 | disposition home or self-care (01) ==
LOC: MW.ED 08:23
DX: H83.09 Labyrinthitis, unspecified ear (principal); Z79.899 Other long term (current) drug therapy
CPT/HCPCS: 36415; 80053; 81025; 85025; 87428; 93005; 96374; 96375; 99285; A9270; J2060; J2405; 99283

== ENCOUNTER 2025-06-19 10:18 | Emergency (ER) | payer BC ==
[2025-06-19 10:41] LABS: BASOPHILS ABSOLUTE AUTO 0.05 K/uL (0.00-0.20); BASOPHILS PERCENT AUTO 0.6 % (0.0-1.0); EOSINOPHILS ABSOLUTE AUTO 0.05 K/uL (0.00-0.45); EOSINOPHILS PERCENT AUTO 0.6 % (0.0-6.0); IMMATURE GRAN ABSOLUTE AUTO 0.01 K/uL (0.00-0.05); IMMATURE GRAN PERCENT AUTO 0.1 % (0.0-0.4); LYMPHOCYTES ABSOLUTE AUTO 2.93 K/uL (1.00-4.80); LYMPHOCYTES PERCENT AUTO 38.0 % (24.0-44.0); MEAN PLATELET VOLUME 10.3 fL (9.4-12.3); MONOCYTES ABSOLUTE AUTO 0.52 K/uL (0.00-0.80); MONOCYTES PERCENT AUTO 6.7 % (0.0-8.0); NEUTROPHILS ABSOLUTE AUTO 4.15 K/uL (1.80-7.70); NEUTROPHILS PERCENT AUTO 54.0 % (41.0-71.0); NRBC ABSOLUTE 0.00 K/uL (0.00-0.02); NRBC PERCENT 0.0 /100WBC (0.0-0.2); PLATELET COUNT,PLT 298 K/uL (150-400); RED BLOOD CELL COUNT 4.65 M/uL (4.10-5.30); WHITE BLOOD CELL COUNT,WBC 7.71 K/uL (3.9-11.3)
[2025-06-19 11:23] LABS: A/G RATIO 1.1 (0.9-1.6); ALANINE AMINOTRANSFERASE,ALT 33.0 IU/L (14-63); ASPARTATE AMNIOTRANSFERASE,AST 27.0 IU/L (15-37); BILIRUBIN TOTAL 1.1 mg/dL (0.2-1.0); BLOOD UREA NITROGEN,BUN 12.0 mg/dL (7.0-18.0); CARBON DIOXIDE,CO2 23.6 mmol/L (21.0-32.0); CHLORIDE,CL 100.0 mmol/L (98-107); CREATININE 0.9 mg/dL (0.6-1.0); EST CRCL DRUG DOSING (CG) 74.67 mL/min; GLUCOSE RANDOM 130.0 mg/dL (74-106); POTASSIUM,K 3.4 mmol/L (3.5-5.1); PRO B-TYPE NATRIUR PEPT,BNPPRO 219.0 pg/mL (0-125); PROTEIN TOTAL,TP 8.2 g/dL (6.4-8.2); SODIUM,NA 138.0 mmol/L (136-145); TSH ULTRASENSITIVE 3.89 uIU/mL (0.36-3.74)
[2025-06-19 11:27] LABS: ESTIMATED GFR 81.0 mL/min (>60)
[2025-06-19 11:46] LABS: T4 FREE 1.05 ng/dL (0.76-1.46)
[2025-06-19] MEDS: Potassium Chloride 20 MEQ Tab.ER PO ONE (11:46)
[2025-06-19 11:53] LABS: APPEARANCE,URINE CLEAR; GLUCOSE,URINE NEGATIVE (NEGATIVE); OCCULT BLOOD,URINE MODERATE (NEGATIVE)
[2025-06-19 12:06] LABS: EPITHELIAL CELLS,URINE RARE (NONE-FEW)
[2025-06-19] MEDS: Heparin Sodium 5,000 Units/ML Vial IVPUSH ONE (15:51)
[2025-06-19] MEDS: Heparin Sodium/0.45% NaCl 25,000 UNITS/250 ML BAG IV SCH (15:52)
== END 2025-06-19 16:15 ==
LOC: MW.ED 10:18
DX: I21.4 Non-ST elevation (NSTEMI) myocardial infarction (principal); I47.10 Supraventricular tachycardia, unspecified; Z79.899 Other long term (current) drug therapy
CPT/HCPCS: 36415; 71045; 80053; 81001; 83735; 83880; 84439; 84443; 84484; 84703; 85025; 85379; 85730; 93005; 96361; 96365; 96375; 99285; A9270; J0153; J1644; J7030; 93010